=== PATIENT | male | born 1965 | race Caucasian/White ===

== ENCOUNTER 2017-03-02 10:18 | Emergency (ER) | payer BC ==
--- NOTE | 2017-03-02 11:45 | UC ---
Throat Pain/Nasal Ag HPI - HPI Summary HPI Summary: "i have a sinus infection.." c/o sinus pressure, phlegm, coughing, for three months. Denies fever/chills/vomiting. Pt was treated 6 months ago for same issue , but states it never went away completely. [ End ] - History of Current Complaint Chief Complaint: UCRespiratory Stated Complaint: COUGH,CHEST CONGESTION Time Seen by Provider: 03/02/17 11:39 Hx Obtained From: Patient Onset/Duration: Gradual Onset Severity: Moderate Cough: Productive Associated Signs & Symptoms: Positive: Sinus Discomfort, Nasal Discharge - Epiglottits Risk Factors Epiglottis Risk Factors: Negative - Allergies/Home Medications Allergies/Adverse Reactions: Allergies Allergy/AdvReac Type Severity Reaction Status Date / Time No Known Allergies Allergy Verified 03/02/17 11:07 PMH/Surg Hx/FS Hx/Imm Hx Previously Healthy: Yes Endocrine History Of: Denies: Thyroid Disease Cardiovascular History Of: Denies: Hypertension Respiratory History Of: Denies: Asthma GI/ History Of: Denies: Gastroesophageal Reflux Neurological History Of: Denies: TIA Psychological History Of: Denies: Depression Cancer History Of: Denies: Lung Cancer - Surgical History Surgical History: None - Family History Known Family History: Positive: None Family History: NON CONTRIBUTORY - Social History Occupation: Employed Full-time Lives: With Family Alcohol Use: Occasionally Substance Use Type: None Smoking Status (MU): Never Smoked Tobacco - Immunization History Most Recent Tetanus Shot: 2003 Review of Systems Constitutional: Fatigue Skin: Negative Eyes: Negative ENT: Ear Ache, Nasal Discharge, Other - sinus pain Respiratory: Negative Cardiovascular: Negative Gastrointestinal: Negative Genitourinary: Negative Motor: Negative Neurovascular: Negative Musculoskeletal: Negative Neurological: Negative Psychological: Negative All Other Systems Reviewed And Are Negative: Yes Physical Exam Triage Information Reviewed: Yes Appearance: Well-Appearing, No Pain Distress, Well-Nourished Vital Signs: Initial Vital Signs Temp 97.7 F 03/02/17 10:57 Pulse 64 03/02/17 10:57 Resp 14 03/02/17 10:57 BP 120/72 03/02/17 10:57 Pulse Ox 96 03/02/17 10:57 Vital Signs Reviewed: Yes Eye Exam: Normal ENT Exam: Normal ENT: Positive: Hearing grossly normal, Pharynx normal, Nasal congestion, Nasal drainage, TMs normal. Negative: Tonsillar swelling, Tonsillar exudate, Trismus , Muffled/hoarse voice Dental Exam: Normal Neck exam: Normal Neck: Positive: 1 Respiratory Exam: Normal Respiratory: Positive: Chest non-tender, No respiratory distress, No accessory muscle use, Wheezing - expiratory. Negative: Respiratory distress, Accessory muscle use Cardiovascular Exam: Normal Musculoskeletal Exam: Normal Neurological Exam: Normal Psychological Exam: Normal Skin Exam: Normal Throat Pain/Nasal Course/Dx - Course Course Of Treatment: concern it may become pneumonia -- treat at this time - Differential Dx/Diagnosis Differential Diagnosis/HQI/PQRI: Sinusitis, URI Provider Diagnoses: bronchitis Discharge - Discharge Plan Condition: Good Disposition: HOME Prescriptions: Amoxicillin/Clavulanate TAB* [Augmentin TAB 875*] 875 mg PO BID #20 tab Patient Education Materials: Acute Bronchitis (ED) Referrals: Jose Shea MD [Primary Care Provider] - 3 Days
--- NOTE | 2017-03-02 12:14 | RAD ---
INDICATION: Cough. COMPARISON: There are no prior studies available for comparison. TECHNIQUE: Dual-energy PA and lateral views of the chest were obtained. FINDINGS: The heart is within normal limits in size. Mediastinal and hilar contours appear within normal limits. The lungs are underinflated and clear. No pleural effusion is seen. IMPRESSION: NO EVIDENCE FOR ACTIVE CARDIOPULMONARY DISEASE.
[2017-03-02 12:37] VITALS: BP 126/69
== END 2017-03-02 12:37 | disposition home or self-care (01) ==
LOC: UCCORT 10:18
DX: J40 Bronchitis, not specified as acute or chronic (principal)
CPT/HCPCS: 71020; 99212; G0463

== ENCOUNTER 2017-04-22 14:33 | Emergency (ER) | payer BC ==
[2017-04-22 14:45] VITALS: BP 137/73
--- NOTE | 2017-04-22 15:28 | UC ---
Ear Complaint HPI - HPI Summary HPI Summary: left ear clogged with dirt and cerumen - History of Current Complaint Chief Complaint: UCEar Stated Complaint: EAR PLUGGED Time Seen by Provider: 04/22/17 14:48 Hx Obtained From: Patient Onset/Duration: Gradual Onset, Lasting Days, Still Present Severity Initially: Mild Severity Currently: Moderate Pain Intensity: 4 Pain Scale Used: 0-10 Numeric Aggravating Factors: Nothing Alleviating Factors: Nothing Associated Signs/Symptoms: Positive: Hearing Loss Related History: T & A - Allergies/Home Medications Allergies/Adverse Reactions: Allergies Allergy/AdvReac Type Severity Reaction Status Date / Time No Known Allergies Allergy Verified 04/22/17 14:45 PMH/Surg Hx/FS Hx/Imm Hx Previously Healthy: Yes Endocrine History Of: Denies: Thyroid Disease Cardiovascular History Of: Denies: Hypertension Respiratory History Of: Denies: Asthma GI/ History Of: Denies: Gastroesophageal Reflux Neurological History Of: Denies: TIA Psychological History Of: Denies: Depression Cancer History Of: Denies: Lung Cancer - Surgical History Surgical History: None - Family History Known Family History: Positive: None Family History: no cardiovascular issues reported in family lineage - Social History Occupation: Employed Full-time Lives: With Family Alcohol Use: Occasionally Substance Use Type: None Smoking Status (MU): Never Smoked Tobacco - Immunization History Most Recent Tetanus Shot: 2003 Review of Systems Constitutional: Negative Skin: Negative Eyes: Negative ENT: Ear Ache - (L) Respiratory: Negative Cardiovascular: Negative Gastrointestinal: Negative Genitourinary: Negative Motor: Negative Neurovascular: Negative Musculoskeletal: Negative Neurological: Negative Psychological: Negative All Other Systems Reviewed And Are Negative: Yes Physical Exam Triage Information Reviewed: Yes Appearance: Well-Appearing, No Pain Distress, Obese Vital Signs: Initial Vital Signs Temp 98.7 F 04/22/17 14:42 Pulse 60 04/22/17 14:42 Resp 16 04/22/17 14:42 BP 137/73 04/22/17 14:42 Pulse Ox 98 04/22/17 14:42 Eye Exam: Normal Eyes: Positive: Conjunctiva Clear ENT Exam: Normal ENT: Positive: Normal ENT inspection, Hearing grossly normal, Pharynx normal, TMs normal - right, Other: - left cerumen impaction. Negative: Nasal congestion , Nasal drainage, Tonsillar swelling, Tonsillar exudate, Trismus, Muffled/ hoarse voice Dental Exam: Normal Neck exam: Normal Neck: Positive: Supple, Nontender, No Lymphadenopathy Respiratory Exam: Normal Respiratory: Positive: Chest non-tender, Lungs clear, Normal breath sounds, No respiratory distress, No accessory muscle use Cardiovascular Exam: Normal Cardiovascular: Positive: RRR, No Murmur, Pulses Normal, Brisk Capillary Refill Musculoskeletal Exam: Normal Musculoskeletal: Positive: Strength Intact, ROM Intact, No Edema Neurological Exam: Normal Neurological: Positive: Alert, Muscle Tone Normal Psychological Exam: Normal Skin Exam: Normal Re-Evaluation - Re-Evaluation First Eval Change: Improved - tolerated procedure well left ear canal clear TM WNL Ear Complaint Course/Dx - Course Course Of Treatment: avoid soaps and q-tips in ears follow with pcp prn - Differential Dx/Diagnosis Differential Diagnosis/HQI/PQRI: Cerumen Impaction, Otitis Externa, Otitis Media Provider Diagnoses: (L) Cerumen Impaction-resolved Discharge - Discharge Plan Condition: Stable Disposition: HOME Patient Education Materials: Cerumen Impaction (ED) Referrals: Jose Shea MD [Primary Care Provider] - If Needed
== END 2017-04-22 15:34 | disposition home or self-care (01) ==
LOC: UCCORT 14:33
DX: H61.22 Impacted cerumen, left ear (principal); E66.9 Obesity, unspecified
CPT/HCPCS: 99212; G0463

== ENCOUNTER 2017-05-24 03:32 | Emergency (ER) | payer BC ==
[2017-05-24] MEDS ORDERED: Aspirin Low Dose CHEW TAB* 81 MG PO ONE (03:41)
[2017-05-24 04:04] LABS: Hematocrit 49 % (42-52); Hemoglobin 16.4 g/dl (14.0-18.0); Mean Corpuscular HGB Conc 33 g/dl (31-36); Mean Corpuscular Hemoglobin 30 pg (27-31); Mean Corpuscular Volume 89 fL (80-94); Mean Platelet Volume 9 um3 (7.4-10.4); Red Blood Count 5.48 10^6/ul (4.0-5.4); Red Cell Distribution Width 14 % (10.5-15); White Blood Count 6.2 10^3/ul (3.5-10.8)
[2017-05-24 04:07] LABS: Albumin 4.1 g/dL (3.2-5.2); BUN/Creatinine Ratio 17.9 (8-20); Calcium 9.1 mg/dL (8.6-10.3); EGFR African American 124.4 (>60); EGFR Non-African American 96.7 (>60); Globulin 2.5 g/dL (2-4); Potassium 3.8 mmol/L (3.5-5.0); Total Bilirubin 0.8 mg/dL (0.2-1.0); Total Protein 6.6 g/dL (6.4-8.9)
--- NOTE | 2017-05-24 04:15 | ED ---
sepideh Garcia Timothy, scribed for Leo Avilez MD on 05/24/17 at 0348 . Upper Extremity Pain - HPI Summary HPI Summary: Gio Fabian is a 52 yo male presenting to [facility] with 2/10 left arm pain since 0200. He states his left arm was numb and felt the pain radiate through his neck to the back of his left ear. He states he went back to sleep, but when the pain did not resolve on its own he [place] [facility] [place] has not self-medicated this morning. His MHx includes numbness. His PCP is Dr. Shea, who he has not seen in the past 6 months - History of Current Complaint Stated Complaint: LEFT ARM PAIN Time Seen by Provider: 05/24/17 03:33 Mechanism Of Injury: Unknown Onset/Duration: Started Hours Ago, Still Present Timing: Constant Severity Initially: Moderate Severity Currently: Moderate Pain Location: Arm Associated Signs & Symptoms: Positive: Numbness/Tingling, Neck Pain - Allergies/Home Medications Allergies/Adverse Reactions: Allergies Allergy/AdvReac Type Severity Reaction Status Date / Time No Known Allergies Allergy Verified 04/22/17 14:45 PMH/Surg Hx/FS Hx/Imm Hx Endocrine/Hematology History: Denies: Hx Thyroid Disease Cardiovascular History: Denies: Hx Hypertension Respiratory History: Denies: Hx Asthma, Hx Lung Cancer Musculoskeletal History: Denies: Hx Scoliosis Neurological History: Denies: Hx Headaches, Hx Transient Ischemic Attacks (TIA), Other Neuro Impairments/Disorders Psychiatric History: Denies: Hx Depression Infectious Disease History: Denies: Traveled Outside the [place] in Last 30 Days - Family History Known Family History: Positive: Cardiac Disease, Hypertension Negative: Diabetes Family History: no cardiovascular issues reported in family lineage - Social History Alcohol Use: Occasionally Substance Use Type: Reports: None Smoking Status (MU): Never Smoked Tobacco Review of Systems Constitutional: Negative Eyes: Negative ENT: Negative Cardiovascular: Negative Respiratory: Negative Gastrointestinal: Negative Genitourinary: Negative Musculoskeletal: Other - neck pain Skin: Negative Positive: Numbness - left arm Psychological: Normal All Other Systems Reviewed And Are Negative: Yes Physical Exam Triage Information Reviewed: Yes Vital Signs On Initial Exam: Initial Vitals Temp Pulse Resp BP Pulse Ox 98.9 F 79 18 123/97 97 05/24/17 03:44 05/24/17 03:44 05/24/17 03:44 05/24/17 03:44 05/24/17 03:44 Vital Signs Reviewed: Yes Appearance: Positive: Well-Appearing, No Pain Distress, Obese Skin: Positive: Warm Head/Face: Positive: Normal Head/Face Inspection Eyes: Positive: TOYA ENT: Positive: Hearing grossly normal Neck: Positive: Supple, Nontender, No Lymphadenopathy Respiratory/Lung Sounds: Positive: Clear to Auscultation, Breath Sounds Present Cardiovascular: Positive: RRR Abdomen Description: Positive: Nontender, Soft Bowel Sounds: Positive: Present Musculoskeletal: Positive: Strength/ROM Intact Neurological: Positive: Alert, Oriented to Person Place, Time Psychiatric: Positive: Affect/Mood Appropriate Diagnostics - Vital Signs Vital Signs Temp Pulse Resp BP Pulse Ox 05/24/17 03:44 98.9 F 79 18 123/97 97 - Laboratory Lab Results: Lab Results 05/24/17 05/24/17 05/24/17 Range/Units 03:40 03:40 03:40 WBC 6.2 (3.5-10.8) 10^3/ul RBC 5.48 H (4.0-5.4) 10^6/ul Hgb 16.4 (14.0-18.0) g/dl Hct 49 (42-52) % MCV 89 (80-94) fL MCH 30 (27-31) pg MCHC 33 (31-36) g/dl RDW 14 (10.5-15) % Plt Count 142 L (150-450) 10^3/ul MPV 9 (7.4-10.4) um3 Neut % (Auto) 61.0 (38-83) % Lymph % (Auto) 26.0 (25-47) % [place] % (Auto) 9.3 H (1-9) % Eos % (Auto) 2.7 (0-6) % Baso % (Auto) 1.0 (0-2) % Absolute Neuts (auto) 3.7 (1.5-7.7) 10^3/ul Absolute Lymphs (auto) 1.6 (1.0-4.8) 10^3/ul Absolute Monos (auto) 0.6 (0-0.8) 10^3/ul Absolute Eos (auto) 0.2 (0-0.6) 10^3/ul Absolute Basos (auto) 0.1 (0-0.2) 10^3/ul Absolute Nucleated RBC 0 10^3/ul Nucleated RBC % 0.1 Sodium 136 (133-145) mmol/L Potassium 3.8 (3.5-5.0) mmol/L Chloride 103 (101-111) mmol/L Carbon Dioxide 25 (22-32) mmol/L Anion Gap 8 (2-11) mmol/L BUN 15 (6-24) mg/dL Creatinine 0.84 (0.67-1.17) mg/dL Est GFR ( Amer) 124.4 (>60) Est GFR (Non-Af Amer) 96.7 (>60) BUN/Creatinine Ratio 17.9 (8-20) Glucose 114 H (70-100) mg/dL Lactic Acid 1.8 (0.5-2.0) mmol/L Calcium 9.1 (8.6-10.3) mg/dL Magnesium 2.0 (1.9-2.7) mg/dL Total Bilirubin 0.80 (0.2-1.0) mg/dL AST 57 H (13-39) U/L ALT 71 H (7-52) U/L Alkaline Phosphatase 74 (34-104) U/L Troponin I 0.00 (<0.04) ng/mL Total Protein 6.6 (6.4-8.9) g/dL Albumin 4.1 (3.2-5.2) g/dL Globulin 2.5 (2-4) g/dL Albumin/Globulin Ratio 1.6 (1-3) Result Diagrams: 05/24/17 03:40 05/24/17 03:40 Lab Statement: Any lab studies that have been ordered have been reviewed, and results considered in the medical decision making process. - Radiology CXR Xray Interpretation: No Acute Changes - No active cardiopulmonary disease Radiology Interpretation Completed By: ED Physician - EKG 0351 Cardiac Rate: NL - 69 BPM EKG Interpretation: NSR @ 69 BPM, normal EKG Course/Dx - Course Assessment/Plan: Gio Fabian is a 52 yo male presenting to [facility] with 2/10 left arm pain, numbness, and neck pain since 0200 this morning. Pt medication list reviewed this visit. In the ED course he received ASA. His EKG suggests NSR. His CXR suggests no active cardiopulmonary disease. After clinical examination and review of his lab and imaging studies, he will be discharged home with left arm pain and parastheisa with appropriate instructions. - Diagnoses Differential Diagnosis/HQI/PQRI: Positive: Other - left arm pain, parasthesia Provider Diagnoses: Left arm pain, Arm paresthesia, left Discharge - Discharge Plan Condition: Stable Disposition: HOME Patient Education Materials: Paresthesia (ED), Arm Pain (ED) Referrals: Jose Shea MD [Primary Care Provider] - 2 Days Additional Instructions: Please follow up with your primary care physician regarding you visit to the emergency department today. Return to the emergency department with any new or recurring symptoms. The documentation as recorded by the sepideh forrest Timothy accurately reflects the service I personally performed and the decisions made by me, Leo Avilez MD.
[2017-05-24 06:50] VITALS: BP 115/74
--- NOTE | 2017-05-24 08:04 | RAD ---
INDICATION: Chest pain. COMPARISON: Comparison is made with a prior study from March 02, 2017. TECHNIQUE: Dual-energy PA and lateral views of the chest were obtained. FINDINGS: The heart is within normal limits in size. Mediastinal and hilar contours appear within normal limits. The lungs are underinflated and grossly clear. No pleural effusion is seen. IMPRESSION: NO EVIDENCE FOR ACTIVE CARDIOPULMONARY DISEASE.
== END 2017-05-24 07:02 | disposition home or self-care (01) ==
LOC: ED 03:32
DX: M79.602 Pain in left arm (principal); R20.9 Unspecified disturbances of skin sensation
CPT/HCPCS: 36415; 71020; 80053; 83605; 83735; 84484; 85025; 93005; 99283

== ENCOUNTER 2017-07-28 10:40 | Emergency (ER) | payer BC ==
[2017-07-28] MEDS ORDERED: Albuterol/Ipratropium NEB.SOL* Albuterol 2.5 MG/Ipratropium 0.5 MG 3 ML INH ONE (12:47)
[2017-07-28 12:53] VITALS: BP 118/75
--- NOTE | 2017-07-28 13:04 | RAD ---
HISTORY: Persistent cough, wheezing COMPARISONS: May 24, 2017 VIEWS: 5: Frontal dual-energy and lateral views of the chest. FINDINGS: CARDIOMEDIASTINAL SILHOUETTE: The cardiomediastinal silhouette is normal. BARTOLO: The bartolo are normal. PLEURA: The costophrenic angles are sharp. No pleural abnormalities are noted. LUNG PARENCHYMA: There is minimal patchy alveolar presentation of the retrocardiac left lower lobe. ABDOMEN: The upper abdomen is clear. There is no subphrenic gas. BONES AND SOFT TISSUES: No bone or soft tissue abnormalities are noted. OTHER: None. IMPRESSION: MINIMAL LEFT LOWER LOBE ATELECTASIS VERSUS CONSOLIDATION
--- NOTE | 2017-07-28 13:45 | UC ---
Respiratory Complaint HPI - HPI Summary HPI Summary: TEN DAYS OF SINUS CONGESTION, FACIAL PRESSURE, PRODUCTIVE COUGH, WHEEZING AND SOB. NO TRAUMA. NO CHEST PAIN. NO FEVER. WORSE OVER LAST TWO DAYS. - History of Current Complaint Chief Complaint: UCRespiratory Stated Complaint: SORE THROAT,COUGH Time Seen by Provider: 07/28/17 12:40 Hx Obtained From: Patient Onset/Duration: Gradual Onset, Lasting Weeks, Still Present Timing: Constant Severity Initially: Moderate Severity Currently: Moderate Character: Cough: Productive Associated Signs And Symptoms: Positive: Wheezing, Nasal Congestion, Hoarseness , Sinus Discomfort. Negative: Fever, Chills, Calf Pain, Calf Swelling, URI - Risk Factors Pulmonary Embolism Risk Factors: Negative Cardiac Risk Factors: Negative Pseudomonas Risk Factors: Negative Tuberculosis Risk Factors: Negative - Allergies/Home Medications Allergies/Adverse Reactions: Allergies Allergy/AdvReac Type Severity Reaction Status Date / Time No Known Allergies Allergy Verified 07/28/17 10:48 PMH/Surg Hx/FS Hx/Imm Hx Previously Healthy: Yes - Surgical History Surgical History: None - Family History Known Family History: Positive: None, Cardiac Disease, Hypertension Negative: Diabetes, Respiratory Disease Family History: no cardiovascular issues reported in family lineage - Social History Occupation: Employed Full-time Lives: With Family Alcohol Use: Weekly Substance Use Type: None Smoking Status (MU): Never Smoked Tobacco - Immunization History Most Recent Tetanus Shot: 2003 Review of Systems Constitutional: Negative Skin: Negative Eyes: Negative ENT: Nasal Discharge, Sinus Congestion Respiratory: Cough Cardiovascular: Negative Gastrointestinal: Negative Genitourinary: Negative Motor: Negative Neurovascular: Negative Musculoskeletal: Negative Neurological: Negative Psychological: Negative All Other Systems Reviewed And Are Negative: Yes Physical Exam Triage Information Reviewed: Yes Appearance: No Pain Distress, Well-Nourished, Ill-Appearing Vital Signs: Initial Vital Signs Temp 98.6 F 07/28/17 10:48 Pulse 80 07/28/17 10:48 Resp 16 07/28/17 10:48 BP 122/69 07/28/17 10:48 Pulse Ox 97 07/28/17 10:48 Vital Signs Reviewed: Yes Eye Exam: Normal ENT: Positive: Pharynx normal, Nasal congestion, TM bulging, TM dull Dental Exam: Normal Neck exam: Normal Neck: Positive: Supple, Nontender, No Lymphadenopathy Respiratory: Positive: Chest non-tender, No respiratory distress, No accessory muscle use, Wheezing Cardiovascular Exam: Normal Cardiovascular: Positive: RRR, No Murmur, Pulses Normal Abdominal Exam: Normal Musculoskeletal Exam: Normal Musculoskeletal: Positive: Strength Intact, ROM Intact Neurological Exam: Normal Psychological Exam: Normal Skin Exam: Normal UC Diagnostic Evaluation - Laboratory O2 Sat by Pulse Oximetry: 98 - Radiology Radiology Interpretation Completed By: Radiologist - MINIMAL LEFT LOWER LOBE CONSOLIDATION VERSUS ATELECTASIS Respiratory Course/Dx - Differential Dx/Diagnosis Differential Diagnosis/HQI/PQRI: Aspiration, Bronchitis, Laryngitis, Sinusitis, Other - LEFT LOWER LOBE ATALECTASIS Provider Diagnoses: SINUSITIS; LEFT LOWER LOBE PNEUMONIA Discharge - Discharge Plan Condition: Stable Disposition: HOME Prescriptions: Albuterol HFA INHALER* [Ventolin HFA Inhaler*] 1 - 2 puff INH Q6H PRN #1 mdi PRN Reason: Wheezing DOXYcycline CAP(*) [DOXYcycline 100MG CAP(*)] 100 mg PO BID #20 cap predniSONE TAB* [Deltasone TAB*] 10 mg PO DAILY #28 tab Patient Education Materials: Pneumonia (ED) Referrals: Jose Shea MD [Primary Care Provider] -
== END 2017-07-28 13:39 | disposition home or self-care (01) ==
LOC: UCCORT 10:40
DX: J32.9 Chronic sinusitis, unspecified (principal); J18.9 Pneumonia, unspecified organism
CPT/HCPCS: 71020; 99212; A9270-GY; G0463

== ENCOUNTER 2019-07-04 09:08 | Emergency (ER) | payer BC ==
[2019-07-04 09:24] VITALS: BP 106/69
--- NOTE | 2019-07-04 09:31 | UC ---
Skin Complaint HPI - HPI Summary HPI Summary: Patient is 54 year old , who present today to the urgent care with his skin rash for past 5 days. He is started noticing the first lesion that came on right upper calf. Red lesion with circular raised margin along with scaling and itchiness. He has developed similar lesions on the right medial ankle and left medial knee. Denies any sick contacts or exposure to any source. Denies any fever, chills, cough chest pain or shortness of breath . . Denies any abdominal pain , nausea or vomiting , diarrhea or constipation. - History of Current Complaint Chief Complaint: UCSkin Time Seen by Provider: 07/04/19 09:29 Stated Complaint: SKIN COMPLAINT Hx Obtained From: Patient Pain Intensity: 0 - Allergy/Home Medications Allergies/Adverse Reactions: Allergies Allergy/AdvReac Type Severity Reaction Status Date / Time No Known Allergies Allergy Verified 07/04/19 09:25 Home Medications: Home Medications [place]-3 Fatty Acids (Nf) [Fish Oil (NF)] 1,000 mg PO DAILY 07/04/19 [History Confirmed 07/04/19] Omeprazole 20 mg PO DAILY 07/04/19 [History Confirmed 07/04/19] Tameric 1 tab PO DAILY 07/04/19 [History] PMH/Surg Hx/FS Hx/Imm Hx - Additional Past Medical History Additional PMH: Past Medical History : GERD, muscular dystrophy Past Surgical History: No Past History of Procedure Family History : non contributory Social History : Occasional alcohol, non smoker, no drug use Previously Healthy: Yes - Surgical History Surgical History: None - Family History Known Family History: Positive: None, Cardiac Disease, Hypertension, Non- Contributory Negative: Diabetes, Respiratory Disease Family History: no cardiovascular issues reported in family lineage - Social History Alcohol Use: Occasionally Substance Use Type: None Smoking Status (MU): Never Smoked Tobacco - Immunization History Most Recent Tetanus Shot: 2003 Review of Systems All Other Systems Reviewed And Are Negative: Yes Constitutional: Positive: Negative Skin: Positive: Rash - Right and left lower extremity Eyes: Positive: Negative ENT: Positive: Negative Respiratory: Positive: Negative Cardiovascular: Positive: Negative Gastrointestinal: Positive: Negative Genitourinary: Positive: Negative Motor: Positive: Negative Neurovascular: Positive: Negative Musculoskeletal: Positive: Negative Neurological: Positive: Negative Psychological: Positive: Negative Is Patient Immunocompromised?: No Physical Exam - Summary Physical Exam Summary: Vital Signs Reviewed: Yes A+Ox3, no distress Eyes: Conjunctiva Clear ENT: Hearing grossly normal neck: supple Respiratory: Positive: No respiratory distress, No accessory muscle use Cardiovascular: skin color reflect adequate perfusion Musculoskeletal Exam: HALLMAN x 4 without difficulty Neurological: Positive: Alert, ambulatory without difficulty Psychological: Positive: Normal Response To Family Skin: Erythematous circular lesions noted in the right lateral upper calf, right medial ankle and left medial knee- noticeable scaling and raised peripheral erythematous border. No drainage or fluctuation. All the lesions are measuring about 1 inch x 1 inch Triage Information Reviewed: Yes Vital Signs: Initial Vital Signs Temp 97.6 F 07/04/19 09:19 Pulse 62 07/04/19 09:19 Resp 16 07/04/19 09:19 BP 106/69 07/04/19 09:19 Pulse Ox 99 07/04/19 09:19 Vital Signs Reviewed: Yes Course/Dx - Course Course Of Treatment: During the visit today, discussed the findings and further plan. Suspect tinea corporis and treat with topical and oral antifungal . I will prescribe the medication to the pharmacy . He will follow up with his primary care doctor within a week. Also advised him see dermatology if needed Patient expressed understanding . - Diagnoses Provider Diagnosis: Tinea corporis Discharge - Sign-Out/Discharge Documenting (check all that apply): Patient Departure All imaging exams completed and their final reports reviewed: No Studies - Discharge Plan Condition: Stable Disposition: HOME Prescriptions: Fluconazole 150 MG (NF) [Diflucan 150 mg (NF)] 150 mg PO ONCE 14 Days #3 tab Terbinafine HCl [Athlete's Foot AF] 1 % EX BID 14 Days #1 tube Patient Education Materials: Tinea Corporis (ED) Referrals: Jose Shea MD [Primary Care Provider] - 1 Week Jack Steven MD [Medical Doctor] - If Needed Additional Instructions: Please start taking the medication as prescribed to the pharmacy . Follow up with your primary care doctor in 1 week. Consult dermatology if no better. Return to Urgent care / ER if symptoms get worse. - Billing Disposition and Condition Condition: STABLE Disposition: Home
== END 2019-07-04 10:12 | disposition home or self-care (01) ==
LOC: UCCORT 09:08
DX: B35.4 Tinea corporis (principal)
CPT/HCPCS: 99212; G0463

== ENCOUNTER 2019-09-08 15:34 | Emergency (ER) | payer BC ==
[2019-09-08] MEDS ORDERED: predniSONE TAB* 20 MG PO ONE (16:40)
[2019-09-08] MEDS ORDERED: Albuterol/Ipratropium NEB.SOL* Albuterol 2.5 MG/Ipratropium 0.5 MG 3 ML INH ONE (16:40)
--- NOTE | 2019-09-08 16:50 | ED ---
Respiratory - HPI Summary HPI Summary: 54 yr old male with the complaint of runny nose, sinus congestion, productive cough of white sputum, and has some shortness of breath. Onset of symptoms two days ago. He has had some pain in the left side of the chest for 3 hours worse with his coughing, and described as tightness. He reports urinating more frequently for the past day or two. He denies any new pain or swelling in the legs. He has no other complaints. - History of Current Complaint Chief Complaint: UCRespiratory Stated Complaint: COUGH,CONGESTION,NORTON Time Seen by Provider: 09/08/19 16:33 Pain Intensity: 4 - Allergy/Home Medications Allergies/Adverse Reactions: Allergies Allergy/AdvReac Type Severity Reaction Status Date / Time No Known Allergies Allergy Verified 09/08/19 16:20 PMH/Surg Hx/FS Hx/Imm Hx Endocrine/Hematology History: Denies: Hx Thyroid Disease Cardiovascular History: Denies: Hx Hypertension Respiratory History: Denies: Hx Asthma, Hx Lung Cancer Musculoskeletal History: Denies: Hx Scoliosis Neurological History: Denies: Hx Headaches, Hx Transient Ischemic Attacks (TIA), Other Neuro Impairments/Disorders Psychiatric History: Denies: Hx Depression Infectious Disease History: No Infectious Disease History: Denies: Traveled Outside the [place] in Last 30 Days - Family History Known Family History: Positive: None, Cardiac Disease, Hypertension, Non- Contributory Negative: Diabetes, Respiratory Disease Family History: no cardiovascular issues reported in family lineage - Social History Occupation: Employed Full-time Lives: With Family Alcohol Use: Weekly Substance Use Type: Reports: None Smoking Status (MU): Never Smoked Tobacco Review of Systems Constitutional: Negative Positive: Nasal Discharge, Other - sinus pressure Positive: Shortness Of Breath, Cough All Other Systems Reviewed And Are Negative: Yes Physical Exam Triage Information Reviewed: Yes Vital Signs On Initial Exam: Initial Vitals Temp Pulse Resp BP Pulse Ox 99.8 F 83 20 138/78 96 09/08/19 16:17 09/08/19 16:17 09/08/19 16:17 09/08/19 16:17 09/08/19 16:17 Vital Signs Reviewed: Yes Appearance: Positive: Well-Appearing, Obese Skin: Positive: Warm, Skin Color Reflects Adequate Perfusion Head/Face: Positive: Normal Head/Face Inspection Eyes: Positive: EOMI ENT: Positive: Nasal congestion, TMs normal, Sinus tenderness Neck: Positive: Nontender Respiratory/Lung Sounds: Positive: Wheezes - left side of chest Cardiovascular: Positive: RRR. Negative: Murmur Abdomen Description: Positive: Nontender. Negative: Distended Musculoskeletal: Positive: Strength/ROM Intact Neurological: Positive: Sensory/Motor Intact, Alert, Oriented to Person Place, Time, CN Intact II-III, Normal Gait, Speech Normal Diagnostics - Vital Signs Vital Signs Temp Pulse Resp BP Pulse Ox 09/08/19 16:17 99.8 F 83 20 138/78 96 - Laboratory Lab Statement: Any lab studies that have been ordered have been reviewed, and results considered in the medical decision making process. - Radiology chest pa lat Radiology Interpretation Completed By: Radiologist - nad - EKG 09/08/19 Cardiac Rate: NL EKG Rhythm: Sinus Rhythm ST Segment: Normal Ectopy: None Summary of EKG Findings: NO STEMI Disposition - Course Course Of Treatment: 54 yr old with tightness, and pain in chest sob for three hours, abrupt in onset. Not better after neb. [facility] contacted and patient transferred for futher evaluation. Jarad Ayala MD ED Attending contacted and he is aware of the patient going to [facility]. - Diagnoses Provider Diagnoses: Chest pain Discharge ED - Sign-Out/Discharge Documenting (check all that apply): Patient Departure All imaging exams completed and their final reports reviewed: Yes - Discharge Plan Condition: Good Disposition: TRANS HIGHER LVL OF CARE FAC Referrals: Jose Shea MD [Primary Care Provider] - - Billing Disposition and Condition Condition: GOOD Disposition: Trans Higher Lvl of Care Fac
[2019-09-08] MEDS ORDERED: Aspirin 81 mg CHEW TAB* 81 MG TAB.CHEW PO ONE (17:33)
[2019-09-08 17:38] VITALS: BP 148/78
== END 2019-09-08 17:38 | disposition short-term general hospital (02) ==
LOC: UCCORT 15:34
DX: R07.9 Chest pain, unspecified (principal); R09.89 Other specified symptoms and signs involving the circulatory and respiratory systems; R05 Cough; R06.02 Shortness of breath
CPT/HCPCS: 71046; 81003; 93005; 99213; A9270-GY; G0463; J7512